=== PATIENT | male | born 1985 | race Caucasian/White ===

== ENCOUNTER 2021-09-27 18:38 | Emergency (ER) | payer SELFPAY ==
[~2021-09-27] VITALS: Ht 172.7 cm; Wt 75.0 kg
[2021-09-27] MEDS ORDERED: HALOPERIDOL LACTATE 5MG/ML VIAL IM ONE (19:15)
[2021-09-27] MEDS ORDERED: LORAZEPAM 2MG/ML CPJ IM ONE (19:15)
[2021-09-27 19:48] LABS: BASOPHILS % 0.7 % (0.0-2.0); EOSINOPHILS % 0.1 % (0.0-5.0); HEMATOCRIT. 46.3 % (42.0-52.0); LYMPHOCYTES % 12.4 % (20.0-50.0); MEAN CORPUSCULAR HEMOGLOBIN 32.3 pg (28.0-32.0); MEAN CORPUSCULAR VOLUME 99.7 fL (80.0-94.0); MEAN PLATELET VOLUME 7.9 fl (7.4-10.4); MONOCYTES % 8.3 % (2.0-8.0); NEUTROPHILS % 78.5 % (40.0-76.0); PLATELET 408 x1000/uL (130-400); RED BLOOD CELL COUNT 4.65 mill/uL (4.7-6.1); RED CELL DISTRIBUTION WIDTH 13.8 % (11.6-14.6)
[2021-09-27 19:51] LABS: CHLORIDE 105 mEq/L (98-107)
[2021-09-27 19:54] LABS: ETHANOL BLOOD < 10 mg/dL
[2021-09-27] MEDS ORDERED: POTASSIUM CHLORIDE 20MEQ TABLET SR PO ONE (21:45)
[2021-09-28 05:00] VITALS: BP 124/79
== END 2021-09-28 05:05 | disposition home or self-care (01) ==
LOC: ER 18:38
DX: G93.40 Encephalopathy, unspecified (principal); R45.1 Restlessness and agitation; T65.91XA Toxic effect of unspecified substance, accidental (unintentional), initial encounter; Y92.89 Other specified places as the place of occurrence of the external cause
CPT/HCPCS: 36415; 80053; 80307; 80320; 80329; 85025; 93005; 96372; 99285; J1630; J2060; G0480